=== PATIENT | female | born 1955 | race Caucasian/White ===

== ENCOUNTER → 2018-04-27 | Outpatient (CLI) | payer OTHER ==
[~2018-04-27] MED LIST: ALPR1 PO; ASPI81CH PO; ATOR20 PO; BENADRYL25 MG PO; CENTRUM SILVER1 EAC3 PO; COCONUT OIL100 GM MC; DOXE10 PO; FISH1000 PO; GABA100 PO; IRON150C PO; Inderal 20 mg T20 MG GT; L-LYSINE500 MG PO; L-TYROSINE500 MG PO; LEVSOD100 PO; LIDO700A20 TOP; Lisinopril2.5 MG; MAGCHL64ER; METO50ER PO; Norco 5-325 Ta1 EACH PO; PRAV20 PO; PROP60 PO; TRAM50 PO; VAGIFEM10 MCG VG; VITAMIN D35000 UNI1 PO
== END | disposition home or self-care (01) ==
LOC: LAB 18:03 → LAB SHORT 18:03
DX: L98.9 Disorder of the skin and subcutaneous tissue, unspecified (principal)
CPT/HCPCS: 87070; 87205

== ENCOUNTER → 2018-04-27 | Outpatient (CLI) | payer OTHER | END | disposition home or self-care (01) | LOC: PLD 09:10 → LAB SHORT 09:10 | DX: C44.519 Basal cell carcinoma of skin of other part of trunk (principal) | CPT/HCPCS: 88305 ==

== ENCOUNTER → 2018-11-01 | Outpatient (CLI) | payer MEDICARE, OTHER | END | disposition home or self-care (01) | LOC: LAB SHORT 08:03 → PLD 08:03 | DX: L57.0 Actinic keratosis (principal) | CPT/HCPCS: 88305 ==

== ENCOUNTER → 2019-10-23 | Outpatient (CLI) | payer MEDICARE, OTHER | END | disposition home or self-care (01) | LOC: PLD 11:54 → LAB SHORT 11:54 | DX: L30.8 Other specified dermatitis (principal); L98.9 Disorder of the skin and subcutaneous tissue, unspecified | CPT/HCPCS: 88305 ==

== ENCOUNTER → 2020-07-17 | Outpatient (CLI) | payer MEDICARE, OTHER | LOC: LAB 15:51 → LAB SHORT 15:51 | DX: D48.5 Neoplasm of uncertain behavior of skin (principal) | CPT/HCPCS: 88305 ==

== ENCOUNTER 2021-09-10 07:06 | Day surgery (SDC) | payer MEDICARE, OTHER ==
--- NOTE | 2021-09-10 07:31 | NUR ---
HERE EARLY WAS TOLD TO BE HERE AT 7 SHE STATES CALLED RADIOLOGY AND INFORMED THEY CAN DO HER PROCEDURE EARLY ONCE WE ADMIT HER. NOTHING TO EAT AND DRINK TODAY NO MEDICATIONS THINKING.
--- NOTE | 2021-09-10 08:17 | NUR ---
return to [facility] after cta. vss
== END 2021-09-10 22:58 | disposition home or self-care (01) ==
LOC: ORD 07:06 → CT 09:00 → ORD 22:58
DX: I25.10 Atherosclerotic heart disease of native coronary artery without angina pectoris (principal); I34.0 Nonrheumatic mitral (valve) insufficiency; I47.2 Ventricular tachycardia; I10 Essential (primary) hypertension; E78.5 Hyperlipidemia, unspecified; E03.9 Hypothyroidism, unspecified; Z88.8 Allergy status to other drugs, medicaments and biological substances
CPT/HCPCS: 75574; Q9967

== ENCOUNTER → 2021-10-22 | Outpatient (CLI) | payer MEDICARE, OTHER | END | disposition home or self-care (01) | LOC: LAB SHORT 14:40 → PLD 14:40 | DX: L57.0 Actinic keratosis (principal) | CPT/HCPCS: 88305 ==

== ENCOUNTER 2022-04-10 12:15 | Emergency (ER) | payer MEDICARE, OTHER ==
[~2022-04-10] VITALS: Ht 167.6 cm; Wt 83.9 kg
[~2022-04-10 12:15] MED LIST changes: +DILT180 PO; +EUTHYROX88 MCG PO; +FURO20 PO; +LOSA50 PO; +OXYC10TA19 PO; +POTA10T PO; +VENL37.5ER PO
[2022-04-10 13:14] LABS: BASOPHILS ABSOLUTE AUTO 0.09 K/mm3 (0.00-0.23); BASOPHILS PERCENT AUTO 1 % (0-2); EOSINOPHILS ABSOLUTE AUTO 0.37 K/mm3 (0.00-0.68); EOSINOPHILS PERCENT AUTO 3 % (0-6); Hematocrit 43.3 % (33.0-51.0); Hemoglobin 14.3 g/dL (11.5-16.0); IMMATURE GRAN ABSOLUTE AUTO 0.05 K/mm3 (0.00-0.10); IMMATURE GRAN PERCENT AUTO 0 % (0-1); LYMPHOCYTES ABSOLUTE AUTO 4.53 K/mm3 (0.84-5.20); LYMPHOCYTES PERCENT AUTO 36 % (21-46); MONOCYTES ABSOLUTE AUTO 1.39 K/mm3 (0.16-1.47); MONOCYTES PERCENT AUTO 11 % (4-13); Mean Corpuscular HGB 28.6 pg (26.0-34.0); Mean Corpuscular Volume 87 fL (80-100); Mean Platelet Volume 9.1 fL (9.1-12.4); NEUTROPHILS PERCENT AUTO 50 % (41-73); Platelet Count 360 K/mm3 (150-400); RDW Coefficient Variation 13.1 % (11.7-14.2); RDW Standard Deviation 41.2 fL (35.1-46.3); White Blood Cell Count 12.73 K/mm3 (4.00-11.30)
[2022-04-10 13:36] LABS: Alanine Aminotransfer (ALT/SGP 33 U/L (12-78); Albumin, Blood 3.6 g/dL (3.4-5.0); Albumin/Globulin Ratio 0.8 (0.8-1.8); Alk Phos 89 U/L (50-136); Anion Gap 6 mmol/L (6-16); Aspartate Aminotrans (AST/SGOT 19 U/L (12-37); Bilirubin, Total 0.4 mg/dL (0.1-1.0); Blood Urea Nitrogen 18 mg/dL (8-24); Bun/Creatinine Ratio 22.9 (12.0-20.0); C-REACTIVE PROTEIN, EXT RANGE <0.290 mg/dL (0.000-0.300); CO2, Blood 30 mmol/L (21-32); Calcium, Blood 9.4 mg/dL (8.5-10.1); Chloride, Blood 105 mmol/L (98-108); Creatinine, Blood 0.79 mg/dL (0.40-1.00); Globulin, Blood 4.3 g/dL (2.2-4.0); Glomerular Filtration Rate 81 (60-); Glucose, Blood 113 mg/dL (70-99); Potassium, Blood 4.1 mmol/L (3.5-5.5); Sodium, Blood 141 mmol/L (136-145); Total Protein, Blood 7.9 g/dL (6.4-8.2)
[2022-04-10] MEDS ORDERED: Cleocin HCl150 MG PO (16:23)
== END 2022-04-10 17:15 | disposition home or self-care (01) ==
LOC: ER 12:15
PROVIDERS: Physician Assistant
DX: L03.213 Periorbital cellulitis (principal); M79.7 Fibromyalgia; G43.909 Migraine, unspecified, not intractable, without status migrainosus; Z88.8 Allergy status to other drugs, medicaments and biological substances; Z79.899 Other long term (current) drug therapy; Z79.82 Long term (current) use of aspirin; Z87.891 Personal history of nicotine dependence
CPT/HCPCS: 70481; 80053; 85025; 86140; Q9967

== ENCOUNTER → 2022-04-22 | Outpatient (CLI) | payer MEDICARE, OTHER ==
[~2022-04-22] MED LIST changes: +Cleocin HCl150 MG PO
== END | disposition home or self-care (01) ==
LOC: LAB SHORT 14:44
DX: C44.519 Basal cell carcinoma of skin of other part of trunk (principal)
CPT/HCPCS: 88305

== ENCOUNTER 2022-05-02 12:29 | Emergency (ER) | payer MEDICARE, OTHER ==
[~2022-05-02] VITALS: Ht 167.6 cm; Wt 86.2 kg
[2022-05-02] MEDS ORDERED: Bactrim Ds Tab1 EACH PO (13:56)
[2022-05-02] MEDS ORDERED: Amoxicillin875 MG PO (13:56)
== END 2022-05-02 14:05 | disposition home or self-care (01) ==
LOC: ER 12:29
DX: L03.213 Periorbital cellulitis (principal); M79.7 Fibromyalgia; G43.909 Migraine, unspecified, not intractable, without status migrainosus; Z88.8 Allergy status to other drugs, medicaments and biological substances; Z79.899 Other long term (current) drug therapy; Z79.82 Long term (current) use of aspirin; Z87.891 Personal history of nicotine dependence
CPT/HCPCS: 99283

== ENCOUNTER → 2022-05-26 | Outpatient (CLI) | payer MEDICARE, OTHER ==
[~2022-05-26] MED LIST changes: +Amoxicillin875 MG PO; +Bactrim Ds Tab1 EACH PO
== END | disposition home or self-care (01) ==
LOC: LAB 12:45 → LAB SHORT 12:45
DX: C44.519 Basal cell carcinoma of skin of other part of trunk (principal)
CPT/HCPCS: 88305

== ENCOUNTER 2022-09-05 20:49 | Emergency (ER) | payer MEDICARE, OTHER ==
[~2022-09-05] VITALS: Ht 167.6 cm; Wt 81.7 kg
[2022-09-05 20:57] VITALS: BP 153/103
[2022-09-05 21:24] LABS: BASOPHILS ABSOLUTE AUTO 0.08 K/mm3 (0.00-0.23); BASOPHILS PERCENT AUTO 1 % (0-2); EOSINOPHILS ABSOLUTE AUTO 0.37 K/mm3 (0.00-0.68); EOSINOPHILS PERCENT AUTO 3 % (0-6); Hematocrit 41.4 % (33.0-51.0); Hemoglobin 13.7 g/dL (11.5-16.0); IMMATURE GRAN ABSOLUTE AUTO 0.05 K/mm3 (0.00-0.10); IMMATURE GRAN PERCENT AUTO 0 % (0-1); LYMPHOCYTES ABSOLUTE AUTO 5.06 K/mm3 (0.84-5.20); LYMPHOCYTES PERCENT AUTO 36 % (21-46); MONOCYTES ABSOLUTE AUTO 1.62 K/mm3 (0.16-1.47); MONOCYTES PERCENT AUTO 12 % (4-13); Mean Corpuscular HGB 28.6 pg (26.0-34.0); Mean Corpuscular HGB Conc 33.1 g/dL (31.5-36.5); Mean Corpuscular Volume 86 fL (80-100); Mean Platelet Volume 9.2 fL (9.1-12.4); NEUTROPHILS ABSOLUTE AUTO 6.86 K/mm3 (1.96-9.15); NEUTROPHILS PERCENT AUTO 49 % (41-73); Platelet Count 365 K/mm3 (150-400); RDW Coefficient Variation 12.5 % (11.7-14.2); RDW Standard Deviation 39.8 fL (35.1-46.3); Red Blood Cell Count 4.79 M/mm3 (3.80-5.20); White Blood Cell Count 14.04 K/mm3 (4.00-11.30)
[2022-09-05 21:45] LABS: Albumin, Blood 3.5 g/dL (3.4-5.0); Albumin/Globulin Ratio 0.8 (0.8-1.8); Bilirubin, Total 0.3 mg/dL (0.1-1.0); Calcium, Blood 9.2 mg/dL (8.5-10.1); Creatinine, Blood 0.82 mg/dL (0.40-1.00); Globulin, Blood 4.2 g/dL (2.2-4.0); Potassium, Blood 3.9 mmol/L (3.5-5.5); Total Protein, Blood 7.7 g/dL (6.4-8.2)
[2022-09-05] MEDS ORDERED: Bactrim Ds Tab1 EACH PO (22:46)
[2022-09-05] MEDS ORDERED: AMOCLA875 PO (22:46)
== END 2022-09-05 22:55 | disposition home or self-care (01) ==
LOC: ER 20:49
PROVIDERS: Physician Assistant
DX: L03.213 Periorbital cellulitis (principal); Z88.8 Allergy status to other drugs, medicaments and biological substances; Z79.899 Other long term (current) drug therapy; Z79.82 Long term (current) use of aspirin; G43.909 Migraine, unspecified, not intractable, without status migrainosus; Z87.891 Personal history of nicotine dependence
CPT/HCPCS: 36415; 80053; 85025; 99283; A9270

== ENCOUNTER → 2022-11-11 | Outpatient (CLI) | payer MEDICARE, OTHER ==
[~2022-11-11] MED LIST changes: +AMOCLA875 PO
[2022-11-11 21:37] LABS: Microalbumin, Urine Quant. <5.000 mg/L (0.000-20.000); Protein, Urine Quantitative <5.0 mg/dL (0.0-11.9)
== END | disposition home or self-care (01) ==
LOC: LAB 14:18 → LAB SHORT 14:18
PROVIDERS: Internal Medicine Nephrology
DX: N18.30 Chronic kidney disease, stage 3 unspecified (principal); D63.1 Anemia in chronic kidney disease; N25.81 Secondary hyperparathyroidism of renal origin; E78.00 Pure hypercholesterolemia, unspecified; R76.9 Abnormal immunological finding in serum, unspecified; R94.5 Abnormal results of liver function studies; R94.6 Abnormal results of thyroid function studies
CPT/HCPCS: 81050; 82043; 82570; 84156

== ENCOUNTER → 2023-04-28 | Outpatient (CLI) | payer MEDICARE, OTHER | LOC: LAB 14:34 → LAB SHORT 14:34 | DX: C44.319 Basal cell carcinoma of skin of other parts of face (principal) | CPT/HCPCS: 88305 ==

== ENCOUNTER → 2024-02-03 | Outpatient (CLI) | payer MEDICARE, OTHER | END | disposition home or self-care (01) | LOC: LAB 18:40 → LAB SHORT 18:40 | DX: R82.998 Other abnormal findings in urine (principal) | CPT/HCPCS: 87077; 87086; 87186 ==

== ENCOUNTER 2024-03-12 10:05 | Emergency (ER) | payer MEDICARE, OTHER ==
[~2024-03-12] VITALS: Ht 167.6 cm; Wt 71.7 kg
[2024-03-12 11:20] LABS: BASOPHILS ABSOLUTE AUTO 0.07 K/mm3 (0.00-0.23); BASOPHILS PERCENT AUTO 0 % (0-2); EOSINOPHILS ABSOLUTE AUTO 0.11 K/mm3 (0.00-0.68); EOSINOPHILS PERCENT AUTO 1 % (0-6); Hematocrit 46.4 % (33.0-51.0); Hemoglobin 15.8 g/dL (11.5-16.0); IMMATURE GRAN ABSOLUTE AUTO 0.08 K/mm3 (0.00-0.10); IMMATURE GRAN PERCENT AUTO 1 % (0-1); LYMPHOCYTES ABSOLUTE AUTO 3.84 K/mm3 (0.84-5.20); LYMPHOCYTES PERCENT AUTO 24 % (21-46); MONOCYTES ABSOLUTE AUTO 1.18 K/mm3 (0.16-1.47); MONOCYTES PERCENT AUTO 7 % (4-13); Mean Corpuscular HGB 28.9 pg (26.0-34.0); Mean Corpuscular HGB Conc 34.1 g/dL (31.5-36.5); Mean Corpuscular Volume 85 fL (80-100); Mean Platelet Volume 8.8 fL (9.1-12.4); NEUTROPHILS ABSOLUTE AUTO 10.69 K/mm3 (1.96-9.15); NEUTROPHILS PERCENT AUTO 67 % (41-73); Platelet Count 408 K/mm3 (150-400); Red Blood Cell Count 5.46 M/mm3 (3.80-5.20); White Blood Cell Count 15.97 K/mm3 (4.00-11.30)
[2024-03-12 11:45] LABS: Magnesium, Blood 2.3 mg/dL (1.6-2.4)
[2024-03-12 11:48] LABS: Albumin, Blood 4.2 g/dL (3.4-5.0); Albumin/Globulin Ratio 0.9 (0.8-1.8); Bilirubin, Total 0.5 mg/dL (0.1-1.0); Bun/Creatinine Ratio 21.9 (12.0-20.0); Calcium, Blood 10.4 mg/dL (8.5-10.1); Creatinine, Blood 0.87 mg/dL (0.40-1.00); Globulin, Blood 4.5 g/dL (2.2-4.0); Potassium, Blood 3.7 mmol/L (3.5-5.5); Total Protein, Blood 8.7 g/dL (6.4-8.2)
[2024-03-12] MEDS ORDERED: OxyCODONE HCL 5 MG TAB PO ONE (13:00)
[2024-03-12] MEDS ORDERED: Ketorolac Tromethamine 30mg Vial IV ONE (13:05)
[2024-03-12 14:56] LABS: Influenza A, PCR NEGATIVE (NEGATIVE); Influenza B, PCR NEGATIVE (NEGATIVE); Resp Syncytial Virus, PCR NEGATIVE (NEGATIVE); SARS-Cov-2 (COVID-19) PCR, MMC NEGATIVE (NEGATIVE)
[2024-03-12 15:20] VITALS: BP 116/78
== END 2024-03-12 15:30 | disposition home or self-care (01) ==
LOC: ER 10:05
PROVIDERS: Student in an Organized Health Care Education/Training Program
DX: R53.1 Weakness (principal); M54.9 Dorsalgia, unspecified; E03.9 Hypothyroidism, unspecified; Z88.8 Allergy status to other drugs, medicaments and biological substances; Z79.82 Long term (current) use of aspirin; Z79.899 Other long term (current) drug therapy; Z79.890 Hormone replacement therapy; Z87.891 Personal history of nicotine dependence; Z11.52 Encounter for screening for COVID-19
CPT/HCPCS: 0241U; 80053; 83690; 83735; 85025; 93005; 93010; 96374; 99284-25; A9270; J1885

== ENCOUNTER 2024-07-15 12:16 | Emergency (ER) | payer MEDICARE, OTHER ==
[~2024-07-15] VITALS: Ht 167.6 cm; Wt 68.0 kg
[2024-07-15 12:59] VITALS: BP 145/69
[2024-07-15 13:19] LABS: BASOPHILS ABSOLUTE AUTO 0.08 K/mm3 (0.00-0.23); BASOPHILS PERCENT AUTO 1 % (0-2); EOSINOPHILS ABSOLUTE AUTO 0.31 K/mm3 (0.00-0.68); EOSINOPHILS PERCENT AUTO 3 % (0-6); Hematocrit 40.9 % (33.0-51.0); Hemoglobin 13.8 g/dL (11.5-16.0); IMMATURE GRAN ABSOLUTE AUTO 0.04 K/mm3 (0.00-0.10); IMMATURE GRAN PERCENT AUTO 0 % (0-1); LYMPHOCYTES ABSOLUTE AUTO 3.49 K/mm3 (0.84-5.20); LYMPHOCYTES PERCENT AUTO 31 % (21-46); MONOCYTES ABSOLUTE AUTO 1.24 K/mm3 (0.16-1.47); MONOCYTES PERCENT AUTO 11 % (4-13); Mean Corpuscular HGB 29.2 pg (26.0-34.0); Mean Corpuscular HGB Conc 33.7 g/dL (31.5-36.5); Mean Corpuscular Volume 87 fL (80-100); Mean Platelet Volume 8.7 fL (9.1-12.4); NEUTROPHILS ABSOLUTE AUTO 5.95 K/mm3 (1.96-9.15); NEUTROPHILS PERCENT AUTO 54 % (41-73); Platelet Count 308 K/mm3 (150-400); RDW Coefficient Variation 12.6 % (11.7-14.2); Red Blood Cell Count 4.72 M/mm3 (3.80-5.20); White Blood Cell Count 11.11 K/mm3 (4.00-11.30)
[2024-07-15 13:39] LABS: Albumin, Blood 3.8 g/dL (3.4-5.0); Bilirubin, Total 0.5 mg/dL (0.1-1.0); Bun/Creatinine Ratio 16.8 (12.0-20.0); Calcium, Blood 9.2 mg/dL (8.5-10.1); Creatinine, Blood 0.96 mg/dL (0.40-1.00); Globulin, Blood 3.9 g/dL (2.2-4.0); Potassium, Blood 3.8 mmol/L (3.5-5.5); Total Protein, Blood 7.7 g/dL (6.4-8.2)
[2024-07-15 15:42] LABS: Source, Urine Clean Catch
[2024-07-15 15:47] LABS: Appearance, Urine Clear (Clear); Bilirubin, Urine Neg (Neg); Blood, Urine 1+ (Neg); Color, Urine Yellow (P-Yellow); Glucose Qualitative, Urine Neg (Neg); Ketones, Urine Neg (Neg); Leukocyte Esterase, Urine 3+ (Neg); Nitrite, Urine Neg (Neg); Protein, Urine 1+ (Neg); Urobilinogen, Urine NORM (Normal); pH, Urine 6.5 (5.0-8.0)
[2024-07-15 15:59] LABS: Bacteria Many /hpf; Red Blood Cells, Urine 0-2 /hpf (0-2); Squamous Epithelial Cells Few /hpf (Few); Transitional Epithelial Cells Rare /hpf (0-Rare)
== END 2024-07-15 16:40 | disposition home or self-care (01) ==
LOC: ER 12:16
PROVIDERS: Student in an Organized Health Care Education/Training Program
DX: M79.7 Fibromyalgia (principal); G43.909 Migraine, unspecified, not intractable, without status migrainosus; Z79.82 Long term (current) use of aspirin; Z79.899 Other long term (current) drug therapy; Z88.1 Allergy status to other antibiotic agents
CPT/HCPCS: 80053; 81001; 82550; 83690; 85025; 87086; 93005; 93010; 99283-25

== ENCOUNTER → 2024-08-30 | Outpatient (CLI) | payer MEDICARE, OTHER | END | disposition home or self-care (01) | LOC: LAB 16:05 → LAB SHORT 16:05 | DX: N39.0 Urinary tract infection, site not specified (principal) | CPT/HCPCS: 87086 ==

== ENCOUNTER → 2025-02-07 | Outpatient (CLI) | payer MEDICARE, OTHER ==
[~2025-02-07] MED LIST changes: +COMPAZINE10 MG PO; +QUET25 PO; +REGLAN1013 PO
== END ==
LOC: LAB SHORT 16:07 → LAB 16:07
DX: N39.0 Urinary tract infection, site not specified (principal)
CPT/HCPCS: 87086

== ENCOUNTER 2025-02-13 15:09 | Emergency (ER) | payer MEDICARE, OTHER ==
[~2025-02-13] VITALS: Ht 167.6 cm; Wt 77.1 kg
[~2025-02-13 15:09] MED LIST changes: -COMPAZINE10 MG PO
[2025-02-13] MEDS ORDERED: Prochlorperazine Edisylate 10 mg Vial IV ONE (16:45)
[2025-02-13] MEDS ORDERED: Ondansetron 4 MG SoluTab SL ONE (16:45)
[2025-02-13] MEDS ORDERED: NS 1,000 ML IV SCH (16:45)
[2025-02-13] MEDS ORDERED: Morphine Sulfate 4 MG/1 ML Injection IV ONE (16:45)
[2025-02-13 17:13] LABS: BASOPHILS ABSOLUTE AUTO 0.07 K/mm3 (0.00-0.23); BASOPHILS PERCENT AUTO 1 % (0-2); EOSINOPHILS ABSOLUTE AUTO 0.27 K/mm3 (0.00-0.68); EOSINOPHILS PERCENT AUTO 2 % (0-6); Hematocrit 41.1 % (33.0-51.0); Hemoglobin 14.1 g/dL (11.5-16.0); IMMATURE GRAN ABSOLUTE AUTO 0.03 K/mm3 (0.00-0.10); IMMATURE GRAN PERCENT AUTO 0 % (0-1); LYMPHOCYTES ABSOLUTE AUTO 3.73 K/mm3 (0.84-5.20); LYMPHOCYTES PERCENT AUTO 33 % (21-46); MONOCYTES ABSOLUTE AUTO 1.17 K/mm3 (0.16-1.47); MONOCYTES PERCENT AUTO 10 % (4-13); Mean Corpuscular HGB Conc 34.3 g/dL (31.5-36.5); Mean Corpuscular Volume 85 fL (80-100); NEUTROPHILS ABSOLUTE AUTO 6.01 K/mm3 (1.96-9.15); NEUTROPHILS PERCENT AUTO 53 % (41-73); NRBC ABSOLUTE 0.00 K/mm3 (0.00-0.02); NRBC Auto 0.0 /100 WBC (0.0-0.2); Platelet Count 344 K/mm3 (150-400); RDW Coefficient Variation 12.6 % (11.7-14.2); RDW Standard Deviation 39.5 fL (35.1-46.3)
[2025-02-13 17:40] LABS: Alanine Aminotransfer (ALT/SGP 24.0 U/L (12-78); Albumin, Blood 3.7 g/dL (3.4-5.0); Albumin/Globulin Ratio 0.9 (0.8-1.8); Anion Gap 5.0 mmol/L (3-11); Aspartate Aminotrans (AST/SGOT 13.0 U/L (12-37); Bilirubin, Total 0.6 mg/dL (0.1-1.0); Blood Urea Nitrogen 14.0 mg/dL (8-24); CO2, Blood 33.0 mmol/L (21-32); Calcium, Blood 9.6 mg/dL (8.5-10.1); Chloride, Blood 102.0 mmol/L (98-108); Creatinine, Blood 0.87 mg/dL (0.40-1.00); Globulin, Blood 4.0 g/dL (2.2-4.0); Glucose, Blood 93.0 mg/dL (70-99); Magnesium, Blood 2.1 mg/dL (1.6-2.4); Potassium, Blood 3.6 mmol/L (3.5-5.5); Sodium, Blood 136.0 mmol/L (136-145); Total Protein, Blood 7.7 g/dL (6.4-8.2)
[2025-02-13 18:00] VITALS: BP 139/69
[2025-02-13] MEDS ORDERED: COMPAZINE10 MG PO (18:07)
== END 2025-02-13 18:22 | disposition home or self-care (01) ==
LOC: ER 15:09
PROVIDERS: Emergency Medicine
DX: G43.909 Migraine, unspecified, not intractable, without status migrainosus (principal); E03.9 Hypothyroidism, unspecified; I48.91 Unspecified atrial fibrillation; Z79.01 Long term (current) use of anticoagulants; Z79.899 Other long term (current) drug therapy; Z79.82 Long term (current) use of aspirin; Z79.890 Hormone replacement therapy; Z87.891 Personal history of nicotine dependence; Z88.8 Allergy status to other drugs, medicaments and biological substances
CPT/HCPCS: 80053; 83735; 85025; 96374; 96375; 99284; J0780; J2270; J7030

== ENCOUNTER 2025-04-02 11:57 | Emergency (ER) | payer MEDICARE, OTHER ==
[~2025-04-02] VITALS: Ht 167.6 cm; Wt 76.7 kg
[~2025-04-02 11:57] MED LIST changes: +COMPAZINE10 MG PO
[2025-04-02] MEDS ORDERED: Ondansetron HCl 2 MG / ML 2ML Vial IV PRN (12:35)
[2025-04-02 12:37] LABS: BASOPHILS ABSOLUTE AUTO 0.07 K/mm3 (0.00-0.23); BASOPHILS PERCENT AUTO 1 % (0-2); EOSINOPHILS ABSOLUTE AUTO 0.08 K/mm3 (0.00-0.68); EOSINOPHILS PERCENT AUTO 1 % (0-6); Hematocrit 42.8 % (33.0-51.0); Hemoglobin 14.5 g/dL (11.5-16.0); IMMATURE GRAN ABSOLUTE AUTO 0.05 K/mm3 (0.00-0.10); IMMATURE GRAN PERCENT AUTO 0 % (0-1); LYMPHOCYTES ABSOLUTE AUTO 3.57 K/mm3 (0.84-5.20); LYMPHOCYTES PERCENT AUTO 25 % (21-46); MONOCYTES ABSOLUTE AUTO 1.51 K/mm3 (0.16-1.47); MONOCYTES PERCENT AUTO 11 % (4-13); Mean Corpuscular HGB Conc 33.9 g/dL (31.5-36.5); Mean Corpuscular Volume 85 fL (80-100); NEUTROPHILS ABSOLUTE AUTO 9.07 K/mm3 (1.96-9.15); NEUTROPHILS PERCENT AUTO 63 % (41-73); NRBC ABSOLUTE 0.00 K/mm3 (0.00-0.02); NRBC Auto 0.0 /100 WBC (0.0-0.2); Platelet Count 364 K/mm3 (150-400); RDW Coefficient Variation 13.0 % (11.7-14.2); RDW Standard Deviation 40.2 fL (35.1-46.3)
[2025-04-02 13:01] LABS: Alanine Aminotransfer (ALT/SGP 27.0 U/L (12-78); Albumin, Blood 3.9 g/dL (3.4-5.0); Albumin/Globulin Ratio 1.0 (0.8-1.8); Anion Gap 10.0 mmol/L (3-11); Aspartate Aminotrans (AST/SGOT 16.0 U/L (12-37); Bilirubin, Total 0.9 mg/dL (0.1-1.0); Blood Urea Nitrogen 19.0 mg/dL (8-24); CO2, Blood 25.0 mmol/L (21-32); Calcium, Blood 9.4 mg/dL (8.5-10.1); Chloride, Blood 105.0 mmol/L (98-108); Creatinine, Blood 0.72 mg/dL (0.40-1.00); Globulin, Blood 4.0 g/dL (2.2-4.0); Glucose, Blood 121.0 mg/dL (70-99); Potassium, Blood 3.9 mmol/L (3.5-5.5); Sodium, Blood 136.0 mmol/L (136-145); Total Protein, Blood 7.9 g/dL (6.4-8.2)
[2025-04-02] MEDS ORDERED: Ondansetron HCl 2 MG / ML 2ML Vial IV ONE (13:30)
[2025-04-02] MEDS ORDERED: NS 1,000 ML IV SCH (13:30)
[2025-04-02] MEDS ORDERED: ONDA4ODT MM (14:06)
[2025-04-02 15:07] VITALS: BP 143/53
== END 2025-04-02 15:10 | disposition home or self-care (01) ==
LOC: ER 11:57
PROVIDERS: Emergency Medicine
DX: R11.2 Nausea with vomiting, unspecified (principal); R53.1 Weakness; G47.00 Insomnia, unspecified; E03.9 Hypothyroidism, unspecified; I48.91 Unspecified atrial fibrillation; Z87.891 Personal history of nicotine dependence; Z88.8 Allergy status to other drugs, medicaments and biological substances; Z79.01 Long term (current) use of anticoagulants; Z79.890 Hormone replacement therapy; Z79.82 Long term (current) use of aspirin; Z79.899 Other long term (current) drug therapy
CPT/HCPCS: 80053; 83690; 85025; 93005; 93010; 96361; 96374; 99284-25; J2405; J7030

== ENCOUNTER 2025-04-04 11:39 | Observation (INO) | payer MEDICARE, OTHER ==
[~2025-04-04] VITALS: Ht 167.6 cm; Wt 69.3 kg
[~2025-04-04 11:39] MED LIST changes: +ONDA4ODT MM
[2025-04-04 13:21] LABS: BASOPHILS ABSOLUTE AUTO 0.05 K/mm3 (0.00-0.23); BASOPHILS PERCENT AUTO 0 % (0-2); EOSINOPHILS ABSOLUTE AUTO 0.06 K/mm3 (0.00-0.68); EOSINOPHILS PERCENT AUTO 0 % (0-6); Hematocrit 41.3 % (33.0-51.0); Hemoglobin 13.7 g/dL (11.5-16.0); IMMATURE GRAN ABSOLUTE AUTO 0.06 K/mm3 (0.00-0.10); IMMATURE GRAN PERCENT AUTO 0 % (0-1); LYMPHOCYTES ABSOLUTE AUTO 2.69 K/mm3 (0.84-5.20); LYMPHOCYTES PERCENT AUTO 19 % (21-46); MONOCYTES ABSOLUTE AUTO 1.35 K/mm3 (0.16-1.47); MONOCYTES PERCENT AUTO 10 % (4-13); Mean Corpuscular HGB Conc 33.2 g/dL (31.5-36.5); Mean Corpuscular Volume 87 fL (80-100); NEUTROPHILS ABSOLUTE AUTO 9.89 K/mm3 (1.96-9.15); NEUTROPHILS PERCENT AUTO 70 % (41-73); NRBC ABSOLUTE 0.00 K/mm3 (0.00-0.02); NRBC Auto 0.0 /100 WBC (0.0-0.2); Platelet Count 380 K/mm3 (150-400); RDW Coefficient Variation 13.0 % (11.7-14.2); RDW Standard Deviation 41.1 fL (35.1-46.3)
[2025-04-04 13:41] LABS: Alanine Aminotransfer (ALT/SGP 27.0 U/L (12-78); Albumin, Blood 3.6 g/dL (3.4-5.0); Albumin/Globulin Ratio 0.9 (0.8-1.8); Anion Gap 8.0 mmol/L (3-11); Aspartate Aminotrans (AST/SGOT 26.0 U/L (12-37); Bilirubin, Direct 0.1 mg/dL (0.0-0.3); Bilirubin, Indirect 0.6 mg/dL (0.1-0.7); Bilirubin, Total 0.7 mg/dL (0.1-1.0); Blood Urea Nitrogen 16.0 mg/dL (8-24); CO2, Blood 27.0 mmol/L (21-32); Calcium, Blood 8.9 mg/dL (8.5-10.1); Chloride, Blood 105.0 mmol/L (98-108); Creatinine, Blood 0.65 mg/dL (0.40-1.00); Globulin, Blood 4.0 g/dL (2.2-4.0); Glucose, Blood 110.0 mg/dL (70-99); Magnesium, Blood 2.5 mg/dL (1.6-2.4); Potassium, Blood 4.3 mmol/L (3.5-5.5); Sodium, Blood 136.0 mmol/L (136-145); Total Protein, Blood 7.6 g/dL (6.4-8.2)
[2025-04-04] MEDS ORDERED: ELIQUIS5 M3 PO (13:50)
[2025-04-04] MEDS ORDERED: DILTIAZEM 24HR180 M3 PO (13:50)
[2025-04-04] MEDS ORDERED: FUROSEMIDE40 MG PO (13:55)
[2025-04-04] MEDS ORDERED: FLU VACC TS2025(65UP)/MF59C/PF 45 MCG/0.5 ML SYRINGE IM SCH (18:15)
[2025-04-04] MEDS ORDERED: Ondansetron HCl 2 MG / ML 2ML Vial IV PRN (18:15)
[2025-04-04] MEDS ORDERED: NS 1,000 ML IV SCH (18:15)
[2025-04-04 20:14] LABS: Source, Urine Clean Catch
[2025-04-04 20:21] LABS: Bilirubin, Urine Neg (Neg); Glucose Qualitative, Urine Neg (Neg); Ketones, Urine Neg (Neg); Leukocyte Esterase, Urine Neg (Neg); Protein, Urine 1+ (Neg); Specific Gravity, Urine 1.010 (1.003-1.022); Urobilinogen, Urine NORM (Normal)
[2025-04-04 20:42] LABS: Color, Urine Pale Yellow (P-Yellow)
[2025-04-04 20:47] VITALS: BP 143/72
[2025-04-05 00:50] VITALS: BP 148/62
[2025-04-05 05:47] VITALS: BP 139/62
--- NOTE | 2025-04-05 06:30 | NUR ---
SHIFT SUMMARY 352 PT ARRIVED FROM ED AROUND 2029. ORIENTED TO ROOM. A&Ox4. PT C/O PAIN AND MEDICATED PER EMAR WITH GOOD EFFECT. NS INFUSING AT 100ml/hr. PT SR IN THE 60's ON TELE. VSS. BED IN LOWEST POSITION AND CALL LIGHT IN REACH.
[2025-04-05 07:23] VITALS: BP 129/58
[2025-04-05] MEDS ORDERED: Diltiazem HCl 180 MG Cap.CD PO SCH (09:00)
--- NOTE | 2025-04-05 14:55 | NUR ---
1430-DC PT LEFT IN STABLE CONDITION VIA SON PICKING HER UP. PT LEFT WITH ALL BELONGINGS.
== END 2025-04-05 14:57 | disposition home health service (06) ==
LOC: ER 11:39 → MEDS 11:40
PROVIDERS: Nurse Practitioner Acute Care; Student in an Organized Health Care Education/Training Program; ADMIT Student in an Organized Health Care Education/Training Program
DX: R20.0 Anesthesia of skin (principal); E03.9 Hypothyroidism, unspecified; I48.0 Paroxysmal atrial fibrillation; I10 Essential (primary) hypertension; Z88.8 Allergy status to other drugs, medicaments and biological substances; Z87.891 Personal history of nicotine dependence
CPT/HCPCS: 36415; 70450; 70551; 71046; 80048; 80076; 83690; 83735; 84484; 85025; 97110; 97161; 97530; 99285-25; A9270; G0378; J7030